=== PATIENT | female | born 1970 | race Caucasian/White ===

== ENCOUNTER 2020-04-17 10:05 | Outpatient (REF) | payer MEDICAID, SELFPAY ==
--- NOTE | 2020-04-17 10:14 | XR_ITS ---
EXAMINATION: XR KNEE, RIGHT CLINICAL INFORMATION: Right knee pain COMPARISON: None TECHNIQUE: Four views of the right knee. FINDINGS: There are is normal bony mineralization. No fracture, dislocation, or destructive process. There is no significant knee joint compartment narrowing and no chondrocalcinosis or erosive change. There is spurring at the quadriceps insertion patella. There may be mild thickening distal quadriceps tendon and trace fluid suprapatellar bursa. Hoffa's fat pad appears normal. Axial view patella shows no lateralization or tilting. XR/XR knee RT 3V IMPRESSION: 1. Spurring quadriceps insertion on patella. 2. Question mild thickening distal quadriceps tendon and trace suprapatellar fluid.
== END 2020-04-17 10:06 | disposition home or self-care (01) ==
LOC: HO.LAB 10:05
PROVIDERS: PCP Student in an Organized Health Care Education/Training Program; Visit Provider Student in an Organized Health Care Education/Training Program
DX: M25.561 Pain in right knee (principal); I10 Essential (primary) hypertension
CPT/HCPCS: 73562

== ENCOUNTER 2020-06-06 13:36 | Outpatient (REF) | payer MEDICAID, SELFPAY ==
--- NOTE | 2020-06-06 | MM_ITS ---
EXAMINATION: MM SCREENING DIGITAL BREAST TOMOSYNTHESIS, BILATERAL CLINICAL INFORMATION: Screening. Asymptomatic. The lifetime risk of breast cancer based on the Tyrer-Cuzick Model is 21%. Additional annual screening with breast MRI may be of benefit in women with a Cary Score of 20% or greater. COMPARISON: Mammography: March 29, 2019 and studies dating back to February 07, 2011 TECHNIQUE: Digital breast tomosynthesis is performed in both the craniocaudal and mediolateral oblique views along with computer-aided detection (CAD). Synthesized 2D images are generated from the tomosynthesis. FINDINGS: There are scattered areas of fibroglandular density (ACR BI-RADS breast composition Category b). There are skin calcifications seen bilaterally as well as stable architectural distortion from previous reduction mammoplasty. No new abnormal dominant mass or more suspicious grouping of microcalcifications identified. MM/MM tomosynthesis screening BI IMPRESSION: There are no significant changes from prior study. ASSESSMENT: BI-RADS 2: Benign RECOMMENDATION: Routine annual mammography screening. This patient's information was entered into a reminder system with a target due date for their next mammogram.
== END 2020-06-06 13:37 | disposition home or self-care (01) ==
LOC: HO.MAMMO 13:36
PROVIDERS: PCP Student in an Organized Health Care Education/Training Program; Visit Provider Student in an Organized Health Care Education/Training Program
DX: Z12.31 Encounter for screening mammogram for malignant neoplasm of breast (principal)
CPT/HCPCS: 77063; 77067

== ENCOUNTER 2021-01-02 08:28 | Outpatient (REF) | payer MEDICAID, SELFPAY ==
--- NOTE | ~2021-01-02 | XR_ITS ---
EXAMINATION: AP VIEWS OF BOTH KNEES WITH WEIGHTBEARING AND A LATERAL AND SUNRISE VIEW OF THE RIGHT KNEE CLINICAL INFORMATION: Pain COMPARISON: 04/17/2020 TECHNIQUE: As above FINDINGS: Moderate effusion. Generalized spurring. Relative preservation of joint space. Minor calcific tendinitis changes lateral femoral metaphysis similar to baseline. XR/XR knee RT 2V IMPRESSION: Increasing now moderate size joint effusion. No new findings otherwise.
--- NOTE | ~2021-01-02 | XR_ITS ---
EXAMINATION: AP VIEWS OF BOTH KNEES WITH WEIGHTBEARING AND A LATERAL AND SUNRISE VIEW OF THE RIGHT KNEE CLINICAL INFORMATION: Pain COMPARISON: 04/17/2020 TECHNIQUE: As above FINDINGS: Moderate effusion. Generalized spurring. Relative preservation of joint space. Minor calcific tendinitis changes lateral femoral metaphysis similar to baseline. XR/XR knee standing BI IMPRESSION: Increasing now moderate size joint effusion. No new findings otherwise.
== END 2021-01-02 08:29 | disposition home or self-care (01) ==
LOC: HO.HOSX 08:28
PROVIDERS: Visit Provider Physician Assistant
DX: M17.11 Unilateral primary osteoarthritis, right knee (principal); M25.562 Pain in left knee
CPT/HCPCS: 73560; 73565; 99202

== ENCOUNTER 2021-06-19 08:54 | Outpatient (REF) | payer MEDICAID, SELFPAY ==
--- NOTE | ~2021-06-19 | MM_ITS ---
EXAMINATION: MM SCREENING DIGITAL BREAST TOMOSYNTHESIS, BILATERAL CLINICAL INFORMATION: Screening. Asymptomatic. Remote reduction mammoplasty, 1999. The lifetime risk of breast cancer based on the Tyrer-Cuzick Model is 22%. COMPARISON: Mammography: 06/06/2020, 03/29/2019, 09/02/2016 TECHNIQUE: Digital breast tomosynthesis is performed in both the craniocaudal and mediolateral oblique views along with computer-aided detection (CAD). Synthesized 2D images are generated from the tomosynthesis. FINDINGS: There are scattered areas of fibroglandular density (ACR BI-RADS breast composition Category b). There is stable minor scarring bilateral breasts along with benign round, rim, predominantly dermal calcifications consistent with the prior reduction mammoplasty. Parenchymal pattern is similar to prior studies. There is no developing density or architectural abnormality. The axilla and skin contours are unremarkable. No significant changes. MM/MM tomosynthesis screening BI IMPRESSION: No mammographic evidence of malignancy. ASSESSMENT: BI-RADS 2: Benign RECOMMENDATION: 1. Routine annual mammography screening. 2. The lifetime risk of breast cancer based on the Tyrer-Cuzick Model is 22%. Additional annual adjunct screening with breast MRI may be of benefit in women with a risk score of 20% or greater. This patient's information was entered into a reminder system with a target due date for their next mammogram.
== END 2021-06-19 08:55 | disposition home or self-care (01) ==
LOC: HO.MAMMO 08:54
PROVIDERS: PCP Student in an Organized Health Care Education/Training Program; Visit Provider Student in an Organized Health Care Education/Training Program
DX: Z12.31 Encounter for screening mammogram for malignant neoplasm of breast (principal)
CPT/HCPCS: 77063; 77067

== ENCOUNTER → 2021-12-18 15:16 | Outpatient (BNVA) | payer MEDICAID, SELFPAY | PROVIDERS: PCP Student in an Organized Health Care Education/Training Program; Visit Provider Physician Assistant | DX: M17.0 Bilateral primary osteoarthritis of knee (principal) | CPT/HCPCS: 20610; 99212; J1040 ==

== ENCOUNTER → 2022-06-16 08:44 | Outpatient (BNVA) | payer MEDICAID, SELFPAY | PROVIDERS: PCP Student in an Organized Health Care Education/Training Program; Visit Provider Physician Assistant | DX: M17.0 Bilateral primary osteoarthritis of knee (principal) | CPT/HCPCS: 20610; 99212; J1040 ==

== ENCOUNTER 2022-12-23 11:51 | Outpatient (REF) | payer MEDICAID, SELFPAY ==
[2022-12-31 04:14] LABS: HPV mRNA E6/E7 rflx Not Detected (Not Detected)
== END 2022-12-23 11:52 | disposition home or self-care (01) ==
LOC: HO.HHCLNP 11:51
PROVIDERS: Visit Provider Advanced Practice Midwife
DX: Z12.4 Encounter for screening for malignant neoplasm of cervix (principal); Z11.51 Encounter for screening for human papillomavirus (HPV)
CPT/HCPCS: 87624; 88142

== ENCOUNTER 2022-12-25 10:30 | Outpatient (REF) | payer MEDICAID, SELFPAY | END 2022-12-25 10:31 | disposition home or self-care (01) | LOC: HO.HHCLNP 10:30 | PROVIDERS: Visit Provider Advanced Practice Midwife | DX: Z13.89 Encounter for screening for other disorder (principal) ==

== ENCOUNTER 2022-12-31 08:43 | Outpatient (REF) | payer MEDICAID, SELFPAY ==
--- NOTE | ~2022-12-31 | MM_ITS ---
EXAMINATION: MM SCREENING DIGITAL BREAST TOMOSYNTHESIS, BILATERAL CLINICAL INFORMATION: Screening. Asymptomatic. Patient has a history of bilateral reduction mammoplasty. COMPARISON: Mammography: This study is compared with prior exams dating back to 2017. TECHNIQUE: Digital breast tomosynthesis is performed in both the craniocaudal and mediolateral oblique views along with computer-aided detection (CAD). Synthesized 2D images are generated from the tomosynthesis. FINDINGS: The breasts are almost entirely fatty (ACR BI-RADS breast composition Category a). There are no significant masses, abnormal calcifications, or other abnormalities. There are post reduction changes in each breast. MM/MM tomosynthesis screening BI IMPRESSION: No mammographic evidence of malignancy. ASSESSMENT: BI-RADS BI-RADS 2 - Benign Findings RECOMMENDATION: Routine annual mammography screening. 1 year F/U This examination should not preclude the clinical evaluation of a suspicious palpable abnormality. This patient's information was entered into a reminder system with a target due date for their next mammogram.
== END 2022-12-31 08:44 | disposition home or self-care (01) ==
LOC: HO.MAMMO 08:43
PROVIDERS: PCP Student in an Organized Health Care Education/Training Program; Visit Provider Student in an Organized Health Care Education/Training Program
DX: Z12.31 Encounter for screening mammogram for malignant neoplasm of breast (principal)
CPT/HCPCS: 77063; 77067

== ENCOUNTER → 2022-12-31 08:45 | Outpatient (BNV) | payer MEDICAID, SELFPAY | PROVIDERS: PCP Student in an Organized Health Care Education/Training Program; Visit Provider Radiology Diagnostic Radiology | DX: Z12.31 Encounter for screening mammogram for malignant neoplasm of breast (principal) | CPT/HCPCS: 77063; 77067 ==

== ENCOUNTER 2023-10-26 08:57 | Outpatient (REF) | payer MEDICAID, SELFPAY ==
[2023-10-26 15:02] LABS: Alanine Aminotransferase 31 U/L (0-31); Albumin Level 4.2 g/dL (3.5-5.0); Alkaline Phosphatase 66 U/L (39-117); Anion Gap 10 (12-20); Aspartate Amino Transferase 22 U/L (5-31); Bilirubin Direct 0.1 mg/dL (0.0-0.5); Bilirubin Total 0.3 mg/dL (0.0-1.0); Blood Urea Nitrogen 12 mg/dL (9-16); Carbon Dioxide 30 mmol/L (22-29); Chloride 103 mmol/L (96-108); Cholesterol 171 mg/dL (<200); Estimated Glomerular Filt Rate > 60; Glucose Random 105 mg/dL (60-115); HDL Cholesterol 61 mg/dL (>40); LDL Cholesterol Calculated 98 mg/dL (<100); Potassium 3.9 mmol/L (3.3-5.1); Sodium 139 mmol/L (135-145); Total Protein 7.5 g/dL (6.5-8.0); Triglycerides 60 mg/dL (<150)
== END 2023-10-26 08:58 | disposition home or self-care (01) ==
LOC: HO.CHCLDS 08:57
PROVIDERS: Visit Provider Student in an Organized Health Care Education/Training Program
DX: I1A.0 Resistant hypertension (principal)
CPT/HCPCS: 36415; 80048; 80061; 80076

== ENCOUNTER 2024-03-24 09:44 | Outpatient (REF) | payer OTHER, SELFPAY ==
--- NOTE | ~2024-03-24 | MM_ITS ---
EXAMINATION: MM SCREENING DIGITAL BREAST TOMOSYNTHESIS, BILATERAL CLINICAL INFORMATION: Screening. Asymptomatic. COMPARISON: Mammography: Comparison is made with available priors TECHNIQUE: Digital breast mammography with tomosynthesis is performed in both the craniocaudal and mediolateral oblique views along with computer-aided detection (CAD). FINDINGS: There are scattered areas of fibroglandular density (ACR BI-RADS breast composition Category b). Bilateral reduction mammoplasty. There are no significant masses, abnormal calcifications, or other abnormalities. MM/MM tomosynthesis screening BI IMPRESSION: No mammographic evidence of malignancy. ASSESSMENT: BI-RADS BI-RADS 2 - Benign Findings RECOMMENDATION: Routine annual mammography screening. 1 year F/U This examination should not preclude the clinical evaluation of a suspicious palpable abnormality. This patient's information was entered into a reminder system with a target due date for their next mammogram. Electronically signed by: Magdalena Mishra DO 04/01/2024 04:07 PM DEREK
== END 2024-03-24 09:45 | disposition home or self-care (01) ==
LOC: HO.MAMMO 09:44
PROVIDERS: Visit Provider Student in an Organized Health Care Education/Training Program
DX: Z12.31 Encounter for screening mammogram for malignant neoplasm of breast (principal)
CPT/HCPCS: 77063; 77067

== ENCOUNTER → 2024-03-24 10:00 | Outpatient (BNV) | payer OTHER, SELFPAY | PROVIDERS: Visit Provider Internal Medicine | DX: Z12.31 Encounter for screening mammogram for malignant neoplasm of breast (principal) | CPT/HCPCS: 77063; 77067 ==

== ENCOUNTER 2025-02-06 09:22 | Outpatient (REF) | payer BC, SELFPAY ==
--- OUTSIDE RECORDS SUMMARY | 2025-02-06 11:04 | XMS_ITS | Encounter Summary ---
Author Organization [employer] Address [address] [place] [address] Care Team Providers Care Motion Picture Photographer Name Role Phone Mone Bazzi MD Primary Care Provider [phone] Reason for Visit * Reason Onset Date Comments Med Refill 01/05/2024 Encounter Details Date Type Department Care Team ([facility] st Contact Info) Description 01/05/2024 Telephone [facility] MEDICINE [address] [place] [address] Mone Bazzi MD [address] [place] [address] Med Refill Social History Tobacco Use Types Packs/Day Years Used Date Smoking Tobacco: Never Passive Smoke Exposure: Never Smokeless Tobacco: Never Alcohol Use Standard Drinks/Week Comments Not Currently 0 (1 standard drink = 0.6 oz pur e alcohol) Depression Answer Date Recorded Patient Health Questionnaire-9 Score 0 11/13/2022 Housing Stability Answer Date Recorded What is your housing situation today? I have jerrell boyer 11/23/[address] you li ve. Do you have problems with any of the following? None of the above 11/23/2023 Food Insecurity Answer Date Recorded Within the past 12 months, y ou worried that your food would run out before you got money to buy more: Never True 11/23/2023 Within the past 12 months,th e food you bought just didn't last and you didn't have enough money to get more: Never True 12/2023 Transportation Answer Date Recorded In the past 12 months, has l ack of transportation kept you from medical appts, meetings, work or from getting things needed for daily living? No 11/23/2023 Utilities Answer Date Recorded In the past 12 months, has t he electric, gas, oil or water company threatened to shut off services in your home? No 11/23/2023 Depression Answer Date Recorded Patient Health Questionnaire-2 Score 0 11/13/2022 Comments No Sex and Gender Information Value Date Recorded Sex Assigned at Female 03/17/2022 10:21 AM EDT Legal Sex Female 10:21 AM EDT Gender Identity Female 03/17/2022 10:21 AM EDT Sexual Orientation Straight 03/17/2022 10 :21 AM EDT documented as of this encounter Miscellaneous Notes * Telephone Encounter - Shane Harding - 01/05/2024 10:34 AM EDT TC from pt requesting medication refill. Medications needing refill : Lorazepam To be sent to: [id number] documented in this encounter Plan of Treatment Upcoming Encounters Date Type Department Care Team (Late st Contact Info) Description 03/21/2025 10:00 AM EST Clinical Support [facility] MED & PEDS [address] [place] [address] Stephanie Mendez, AMANDA [address] [place] [address] documented as of this encounter Visit Diagnoses Not on filedocumented in this encounter Additional Health Concerns Assessment Noted Time PHQ-9 Depression Total Score: 0 11/14/19 23 10:27 AM EDT documented as of this encounter Care Teams Motion Picture Photographer Relationship Specialty Start Date End Date Mone Bazzi MD [address] [place] [address] PCP - General Family Medicine 05/25/13 documented as of this encounter
--- OUTSIDE RECORDS SUMMARY | 2025-02-06 11:04 | XMS_ITS | Encounter Summary ---
Author Organization [employer] Address [address] [place] [address] Care Team Providers Care Glass Production Machine Operator Name Role Phone Mone Bazzi MD Primary Care Provider [phone] Reason for Visit * Reason Onset Date Comments Lab Orders 10/01/2023 Encounter Details Date Type Department Care Team ([facility] st Contact Info) Description 10/01/2023 Telephone [facility] MEDICINE [address] [place] [address] Mone Bazzi MD [address] [place] [address] Lab Orders Social History Tobacco Use Types Packs/Day Years Used Date Smoking Tobacco: Never Smokeless Tobacco: Never Alcohol Use Standard Drinks/Week Comments Not Currently 0 (1 standard drink = 0.6 oz pur e alcohol) Depression Answer Date Recorded Patient Health Questionnaire-9 Score 0 11/13/2022 Housing Stability Answer Date Recorded What is your housing situation today? I have jerrell boyer 03/11/[address] you li ve. Do you have problems with any of the following? None of the above 03/11/2023 Food Insecurity Answer Date Recorded Within the past 12 months, y ou worried that your food would run out before you got money to buy more: Never True 03/11/2023 Within the past 12 months,th e food you bought just didn't last and you didn't have enough money to get more: Never True Transportation Answer Date Recorded In the past 12 months, has l ack of transportation kept you from medical appts, meetings, work or from getting things needed for daily living? No 03/11/2023 Utilities Answer Date Recorded In the past 12 months, has t he electric, gas, oil or water company threatened to shut off services in your home? No 03/11/2023 Depression Answer Date Recorded Patient Health Questionnaire-2 Score 0 11/13/2022 Comments No Sex and Gender Information Value Date Recorded Sex Assigned at Female 03/17/2022 10:21 AM EDT Legal Sex Female 10:21 AM EDT Gender Identity Female 03/17/2022 10:21 AM EDT Sexual Orientation Straight 03/17/2022 10 :21 AM EDT documented as of this encounter Miscellaneous Notes * Telephone Encounter - Yin Pickens RN - 10/02/2023 2:10 PM EDT Noted. Thank you * Telephone Encounter - Mone Bazzi MD - 10/02/2023 12:22 PM EDT Labs will be ordered at the visit * Telephone Encounter - Yin Pickens RN - 10/01/2023 2:40 PM EDT Please review and advise if A1C can be ordered or any other labs. Pt is on recall for October. * Telephone Encounter - Jerry Glover - 10/01/2023 2:27 PM EDT Tc from patient calling to request lab orders for A1c just to make sure everything is fine no concerns at the moment documented in this encounter Plan of Treatment Upcoming Encounters Date Type Department Care Team (Late st Contact Info) Description 03/21/2025 10:00 AM EST Clinical Support [facility] MED & PEDS [address] [place] [address] Stephanie Mendez, RN [address] [place] [address] documented as of this encounter Visit Diagnoses Not on filedocumented in this encounter Additional Health Concerns Assessment Noted Time PHQ-9 Depression Total Score: 0 11/14/19 23 10:27 AM EDT documented as of this encounter Care Teams Glass Production Machine Operator Relationship Specialty Start Date End Date Mone Bazzi MD [address] [place] [id number] PCP - General Family Medicine 05/25/13 documented as of this encounter
--- OUTSIDE RECORDS SUMMARY | 2025-02-06 11:04 | XMS_ITS | Encounter Summary ---
Author Organization [employer] Address [address] [place] [address] Care Team Providers Care Associate Professor Of Sociology Name Role Phone Mone Bazzi MD Primary Care Provider [phone] Reason for Visit * Reason Onset Date Comments Med Refill 01/05/2024 Encounter Details Date Type Department Care Team ([facility] st Contact Info) Description 01/05/2024 Telephone [facility] MEDICINE [address] [place] [address] Mone Bazzi MD [address] [place] [address] Med Refill Social History Tobacco Use Types [...] Telephone Encounter - Shane Harding - 01/05/2024 10:32 AM EDT TC from pt requesting medication refill. Medications needing refill : Concerta To be sent to: [facility] #[id number] documented in this encounter Plan of Treatment Upcoming Encounters Date Type Department Care Team (Late st Contact Info) Description 03/21/2025 10:00 AM EST Clinical Support [facility] CH[facility] MED & PEDS [address] [place] [address] Stephanie Mendez, AMANDA [address] [place] [address] documented as of this encounter Visit Diagnoses Not on filedocumented in this encounter Additional Health Concerns Assessment Noted Time PHQ-9 Depression Total Score: 0 11/14/19 23 10:27 AM EDT documented as of this encounter Care Teams Associate Professor Of Sociology Relationship Specialty Start Date End Date Mone Bazzi MD [address] [place] [address] PCP - General Family Medicine 05/25/13 documented as of this encounter
--- OUTSIDE RECORDS SUMMARY | 2025-02-06 11:04 | XMS_ITS | Encounter Summary ---
Author Organization [employer] Address [address] [place] [address] Care Team Providers Care Eeler Name Role Phone Mone Bazzi MD Primary Care Provider [phone] Reason for Visit * Reason Comments Med Refill Encounter Details Date Type Department Care Team ([facility] st Contact Info) Description 01/18/2025 Refill [facility] MEDICINE [address] [place] [address] Moen Bazzi MD [address] [place] [address] Social History Tobacco Use Types Packs/Day Years Used Date Smoking Tobacco: Never Passive Smoke Exposure: Never Smokeless Tobacco: Never Alcohol Use Standard Drinks/Week Comments Not Currently 0 (1 standard drink = 0.6 oz pur e alcohol) Depression Answer Date Recorded Patient Health Questionnaire-9 Score 0 08/09/2024 Patient Health Questionnaire-9 Score 0 08/09/2024 Last PHQ-9: Questionnaire Data Not on file 0 08/09/2024 Housing Stability Answer Date Recorded What is [...] Date Recorded Patient Health Questionnaire-2 Score 0 08/09/2024 Internet Access Answer Date Recorded Internet Access Q1 Yes 01/16/2024 Internet Access Q2 Not on file 01/16/2024 Comments No Sex and Gender Information Value Date Recorded Sex Assigned at Female 03/17/2022 10:21 AM EDT Legal Sex Female 10:21 AM EDT Gender Identity Female 03/17/2022 10:21 AM EDT Sexual Orientation Straight 03/17/2022 10 :21 AM EDT documented as of this encounter Plan of Treatment Upcoming Encounters Date Type Department Care Team ([facility] st Contact Info) Description 03/21/2025 10:00 AM EST Clinical Support [facility] MED & PEDS [address] [place] [address] Stephanie Mendez, AMANDA [address] [place] [address] documented as of this encounter Visit Diagnoses Not on filedocumented in this encounter Additional Health Concerns Assessment Noted Time PHQ-9 Depression Total Score: 0 08/10/19 25 8:49 AM EDT documented as of this encounter Care Teams Eeler Relationship Specialty Start Date End Date Mone Bazzi MD [address] [place] [address] PCP - General Family Medicine 05/25/13 documented as of this encounter
--- OUTSIDE RECORDS SUMMARY | 2025-02-06 11:04 | XMS_ITS | Encounter Summary ---
Author Organization [employer] Address [address] [place] [address] Care Team Providers Care Supervisor [employer] Name Role Phone Mone Bazzi MD Primary Care Provider [phone] Reason for Visit * Reason Onset Date Comments Med Refill 07/20/2023 Encounter Details Date Type Department Care Team ([facility] st Contact Info) Description 07/20/2023 Telephone [facility] MEDICINE [address] [place] [address] Mone Bazzi MD [address] [place] [address] Med Refill Social History Tobacco Use Types [...] encounter Miscellaneous Notes * Telephone Encounter - Onesimo Lott - 07/20/2023 9:53 AM EST TC from pt requesting medication refill. Medications needing refill: LORazepam (Ativan) 1 MG tablet To be sent to: [facility] #[id number] documented in this encounter Plan of Treatment Upcoming Encounters Date Type Department Care Team (Late st Contact Info) Description 03/21/2025 10:00 AM EST Clinical Support [facility] MED & PEDS [address] [place] [address] Stephanie Mendez, AMANDA [address] [place] [address] documented as of this encounter Visit Diagnoses Not on filedocumented in this encounter Additional Health Concerns Assessment Noted Time PHQ-9 Depression Total Score: 0 11/14/19 23 10:27 AM EDT documented as of this encounter Care Teams Supervisor [employer] Relationship Specialty Start Date End Date Mone Bazzi MD [address] [place] [address] PCP - General Family Medicine 05/25/13 documented as of this encounter
--- OUTSIDE RECORDS SUMMARY | 2025-02-06 11:04 | XMS_ITS | Encounter Summary ---
Author Organization [employer] Address [address] [place] [address] [address] [place] [address] Care Team Providers Care Bottom Sander Name Role Phone Mone Bazzi MD Primary Care Provider [phone] Encounter Details Date Type Department Care Team (Latest Contact Info) Description 05/21/2021 Abstract [facility] CONVERSIONS Dental, Provider, DDS Social History Tobacco Use Types Packs/Day Years Used Date Smoking Tobacco: Never Assessed Comments Unknown Sex and Gender Information Value Date Recorded Sex Assigned at Female 03/17/2022 10:21 AM EDT Legal Sex Female 10:21 AM EDT Gender Identity Female 03/17/2022 10:21 AM EDT Sexual Orientation Straight 03/17/2022 10 :21 AM EDT documented as of this encounter Plan of Treatment Upcoming Encounters Date Type Department Care Team (Late st Contact Info) Description 03/21/2025 10:00 AM EST Clinical Support [facility] MED & PEDS [address] [place] [address] Stephanie Mendez, AMANDA [address] [place] [address] documented as of this encounter Visit Diagnoses Not on filedocumented in this encounter Care Teams Bottom Sander Relationship Specialty Start Date End Date Mone Bazzi MD [address] [place] [address] PCP - General Family Medicine 05/25/13 documented as of this encounter
--- OUTSIDE RECORDS SUMMARY | 2025-02-06 11:04 | XMS_ITS | Encounter Summary ---
Author Organization [employer] Address [address] 7t [place] [address] Care Team Providers Care Production Clerk Name Role Phone Mone Bazzi MD Primary Care Provider [phone] Reason for Visit * Reason Onset Date Comments Med Refill 01/18/2025 Encounter Details Date Type Department Care Team ([facility] st Contact Info) Description 01/18/2025 Telephone [facility] MED & PEDS [address] [place] [address] Mone Bazzi MD [address] [place] [address] Med Refill Social History Tobacco Use Types [...] encounter Miscellaneous Notes * Telephone Encounter - Pratima Pike LPN - 01/18/2025 12:23 PM EDT Script was sent to [facility] #[id number] on 12/01/24 with 2 refills. * Telephone Encounter - Frandy Lamas - 01/18/2025 11:58 AM EDT TC from pt requesting medication refill. Medications needing refill : cloNIDine (Catapres) 0.1 MG tablet To be sent to: [facility] #[id number] - [place], [place] - [address] [place] [address] AT [facility] [address] documented in this encounter Plan of Treatment Upcoming Encounters Date Type Department Care Team (Late st Contact Info) Description 03/21/2025 10:00 AM EST Clinical Support [facility] MED [facility] PEDS [address] [place] [address] Stephanie Mendez, RN [address] [place] [address] documented as of this encounter Visit Diagnoses Not on filedocumented in this encounter Additional Health Concerns Assessment Noted Time PHQ-9 Depression Total Score: 0 08/10/19 25 8:49 AM EDT documented as of this encounter Care Teams Production Clerk Relationship Specialty Start Date End Date Mone Bazzi MD [address] [place] [address] PCP - General Family Medicine 05/25/13 documented as of this encounter
--- OUTSIDE RECORDS SUMMARY | 2025-02-06 11:04 | XMS_ITS | Encounter Summary ---
Author Organization [employer] Address [address] [place] [address] Care Team Providers Care It Support Specialist Name Role Phone Mone Bazzi MD Primary Care Provider [phone] Reason for Visit * Reason Comments Med Refill Encounter Details Date Type Department Care Team ([facility] st Contact Info) Description 07/17/2023 Refill [facility] MEDICINE [address] [place] [address] Conrad Zapata MD [address] [place] [address] Anxiety Social History Tobacco Use Types Packs/Day Years [...] Description 03/21/2025 10:00 AM EST Clinical Support [facility] MED & PEDS [address] [place] [address] Stephanie Mendez, AMANDA [address] [place] [address] documented as of this encounter Visit Diagnoses Diagnosis Anxiety Anxiety state, unspecified documented in this encounter Additional Health Concerns Assessment Noted Time PHQ-9 Depression Total Score: 0 11/14/19 23 10:27 AM EDT documented as of this encounter Care Teams It Support Specialist Relationship Specialty Start Date End Date Mone Bazzi MD [address] [place] [address] PCP - General Family Medicine 05/25/13 documented as of this encounter
--- OUTSIDE RECORDS SUMMARY | 2025-02-06 11:04 | XMS_ITS | Encounter Summary ---
Author Organization [employer] Address [address] [place] [address] Care Team Providers Care Energy Efficiency Specialist Name Role Phone Mone Bazzi MD Primary Care Provider [phone] Encounter Details Date Type Department Care Team (Late st Contact Info) Description 02/03/2024 Orders Only [facility] [address] [place] [address] Provider, MD Hollie Social History Tobacco Use Types Packs/Day Years [...] Recorded Patient Health Questionnaire-2 Score 0 11/13/2022 Internet Access Answer Date Recorded Internet Access [...] Description 03/21/2025 10:00 AM EST Clinical Support [facility]S [address] [place] [address] Stephanie Mendez, AMANDA [address] [place] [address] documented as of this encounter Procedures Procedure Name Priority Date/Time Associated Diagnosis Comments CT ABDOMEN PELVIS W CONTRAST Routine 02/03/2024 10:30 AM EDT documented in this encounter Results * CT Abdomen Pelvis w/ Contrast (02/03/2024 10:30 AM EDT) Anatomical Region Laterality Modality Body, Pelvis, Abdomen Computed T omography us Historical Provider MD MOMIN CT PROCEDURES Final R esult documented in this encounter Visit Diagnoses Not on filedocumented in this encounter Additional Health Concerns Assessment Noted Time PHQ-9 Depression Total Score: 0 11/14/19 23 10:27 AM EDT documented as of this encounter Care Teams Energy Efficiency Specialist Relationship Specialty Start Date End Date Mone Bazzi MD [address] [place] [id number] PCP - General Family Medicine 05/25/13 documented as of this encounter
--- OUTSIDE RECORDS SUMMARY | 2025-02-06 11:04 | XMS_ITS | Clinical Summary ---
Author Organization [employer] [facility] it Address [address] [place] [address] Care Team Providers Care Building Supplies Salesperson Retail Name Role Phone Kiera Mancera MD Primary Care Provider [phone] Surgical History Surgery Date Site/Laterality Comments BREAST REDUCTION 2000 PROCEDURE: OK BREAST REDUCTION; COMMENT: Dr. Deepak Ann Medical History Medical History Date Comments Carpal tunnel syndrome 05/15/2005 DX:Carpal tunnel syndrome; COMMENT: Right wrist 04/21. Keloid scar DX:Keloid scar; COMMENT: left pinna Family History Medical History Relation Name Comments Breast cancer Mother's side 1 first cousi n Relation Name Status Comments Brother Alive x2 from dad, 1 from mom, all healthy Father Alive HTN Mother Alive HTN, Diabetes Mother's side 1 Mother's side 2 Social History Tobacco Use Types Packs/Day Years Used Date Smoking Tobacco: Former Cigarettes Q uit: 08/16/2004 Smokeless Tobacco: Never Alcohol Use Standard Drinks/Week Comments No 0 (1 standard drink = 0.6 oz pur e alcohol) Comments Unknown Sex and Gender Information Value Date Recorded Sex Assigned at Not on file Legal Sex Female 2:24 AM EST Gender Identity Not on file Sexual Orientation Not on file Obstetrics History Plan of Treatment Health Maintenance Due Date Last Done Comments Breast Cancer Screening 1970 DTaP,Tdap,and Td Vaccines (1 - Tdap) 1989 Cervical Cancer Screening: P ap Smear 1991 Hepatitis B Vaccines (3 of 3 - 19+ 3-dose series) 09/23/2004 04/26/2004, 03/26/2004 Pneumococcal Vaccine: 50+ Years (1 of 1 - PCV) 2020 Zoster Vaccines (1 of 2) 2020 Cholesterol Screening (Lipid Panel) 06/16/2023 Colorectal Cancer Screening: Colonoscopy 06/16/2023 HIV Screening 06/16/2023 Hepatitis C Screening 06/16/2023 Hypertension/CHF/CAD Annual BMP Blood Test 06/16/2023 Social Influencers of Health Screening 06/16/2023 Depression Screening 05/18/2024 COVID-19 Vaccine (1 - 2023-2 5 season) 2025 Influenza Vaccine (#1) 2025 0, 02/09/2009 MMR Vaccines Aged Out 05/17/2004 No longer eligi ble based on patient's age to complete this topic HIB Vaccines Aged Out No longer eligi ble based on patient's age to complete this topic HPV Vaccines Aged Out No longer eligi ble based on patient's age to complete this topic Hepatitis A Vaccines Aged Out No long er eligible based on patient's age to complete this topic IPV Vaccines Aged Out No longer eligi ble based on patient's age to complete this topic Meningococcal ACWY Vaccine Aged Out N o longer eligible based on patient's age to complete this topic Meningococcal B Vaccine Aged Out No l onger eligible based on patient's age to complete this topic RSV Immunization Patients Under 20 months Aged Out No longer eligible b ased on patient's age to complete this topic Varicella Vaccines Aged Out No longer eligible based on patient's age to complete this topic Care Teams Building Supplies Salesperson Retail Relationship Specialty Start Date End Date Kiera Mancera MD [address] [place] [id number] PCP - General 08/19/11
--- OUTSIDE RECORDS SUMMARY | 2025-02-06 11:04 | XMS_ITS | Encounter Summary ---
Author Organization [employer] Address [address] [place] [address] Care Team Providers Care Senior Estimator Name Role Phone Mone Bazzi MD Primary Care Provider [phone] Reason for Visit * Reason Onset Date Comments Med Refill 07/20/2023 Encounter Details Date Type Department Care Team ([facility] st Contact Info) Description 07/20/2023 Telephone [facility] [address] [place] [address] Mone Bazzi MD [address] [place] [address] Med Refill Social History Tobacco Use Types [...] encounter Miscellaneous Notes * Telephone Encounter - Mone Bazzi MD - 07/21/2023 11:21 AM EST Med sent * Telephone Encounter - Catrachita Murphy - 07/21/2023 10:00 AM EST Tc from pt calling in regards to refill. States medication is supposed to be Methylphenidate HCl (methylphenidate ER) 27 MG 24 hr table * Telephone Encounter - Onesimo Lott - 07/20/2023 9:54 AM EST TC from pt requesting medication refill. Medications needing refill: Concerta 18 MG CR tablet To be sent to: [id number] documented in this encounter Plan of Treatment Upcoming Encounters Date Type Department Care Team (Late st Contact Info) Description 03/21/2025 10:00 AM EST Clinical Support [facility] MED [facility] PEDS [address] [facility] [place] [address] Stephanie Mendez RN [address] [facility] [place] [address] documented as of this encounter Visit Diagnoses Not on filedocumented in this encounter Additional Health Concerns Assessment Noted Time PHQ-9 Depression Total Score: 0 11/14/19 10:27 AM EDT documented as of this encounter Care Teams Senior Estimator Relationship Specialty Start Date End Date Mone Bazzi MD [address] [place] [id number] PCP - General Family Medicine 05/25/13 documented as of this encounter
--- OUTSIDE RECORDS SUMMARY | 2025-02-06 11:04 | XMS_ITS | Encounter Summary ---
Author Organization [employer] Address [address] [facility] 7[address] [place] [address] Care Team Providers Care Automobile Taillight Assembler Name Role Phone Mone Bazzi MD Primary Care Provider [phone] Reason for Visit * Reason Onset Date Comments Appointment Request 08/14/2022 Encounter Details Date Type Department Care Team (Late Contact Info) Description 08/14/2022 Telephone [facility] MEDICINE [address] [place], [place] [phone] Mone Bazzi MD [address] [place], [place] [phone] Appointment Request Social History Tobacco Use Types Packs/Day Years Used Date Smoking Tobacco: Never Assessed Comments Unknown Sex and Gender Information Value Date Recorded Sex Assigned at Female 03/17/2022 10:21 AM EDT Legal Sex Female 10:21 AM EDT Gender Identity Female 03/17/2022 10:21 AM EDT Sexual Orientation Straight 03/17/2022 10 :21 AM EDT documented as of this encounter Miscellaneous Notes * Telephone Encounter - [place] - 08/14/2022 4:08 PM EDT Tc from pt requesting to r/s appt on 08/12/22 ( [employer] [place] ) Please contact pt at [phone] documented in this encounter Plan of Treatment Upcoming Encounters Date Type Department Care Team ([facility] Contact Info) Description 03/21/2025 10:00 AM EST Clinical Support [facility] MED & PEDS [address] [place] [address] Stephanie Mendez, AMANDA [address] [place] [address] documented as of this encounter Visit Diagnoses Not on filedocumented in this encounter Care Teams Automobile Taillight Assembler Relationship Specialty Start Date End Date Mone Bazzi MD [address] [place] [id number] PCP - General Family Medicine 05/25/13 documented as of this encounter
--- OUTSIDE RECORDS SUMMARY | 2025-02-06 11:04 | XMS_ITS | Encounter Summary ---
Author Organization [employer] Address [address] [facility] 7[address] [place] [address] Care Team Providers Care Wooden Box Maker Name Role Phone Mone Bazzi MD Primary Care Provider [phone] Encounter Details Date Type Department Care Team (Late st Contact Info) Description 09/28/2023 Orders Only [facility] [address] [place] [address] Provider, MD Hollie Social History Tobacco Use [...] Description 03/21/2025 10:00 AM EST Clinical Support [facility] MED & PEDS [address] [place] [address] Stephanie Mendez, RN [address] [place] [address] documented as of this encounter Procedures Procedure Name Priority Date/Time Associated Diagnosis Comments XR CHEST 2 VIEWS Routine 09/28/2023 1:29 PM EDT documented in this encounter Results * XR Chest 2 Views (09/28/2023 1:29 PM EDT) Anatomical Region Laterality Modality Chest Radiographic Claudia ging us Historical Provider MD MOMIN XR PROCEDURES Final R esult documented in this encounter Visit Diagnoses Not on filedocumented in this encounter Additional Health Concerns Assessment Noted Time PHQ-9 Depression Total Score: 0 11/14/19 23 10:27 AM EDT documented as of this encounter Care Teams Wooden Box Maker Relationship Specialty Start Date End Date Mone Bazzi MD [address] [place] [id number] PCP - General Family Medicine 05/25/13 documented as of this encounter
--- OUTSIDE RECORDS SUMMARY | 2025-02-06 11:04 | XMS_ITS | Encounter Summary ---
Author Organization [employer] Address [address] [facility] 7 [place] [address] Care Team Providers Care Building Inspection Engineer Name Role Phone Mone Bazzi MD Primary Care Provider [phone] Reason for Visit * Reason Comments Med Refill Encounter Details Date Type Department Care Team ([facility] st Contact Info) Description 04/08/2023 Refill [facility] MED & PEDS [address] [place], [place] [phone] Johny Vega MD [address] [place] [address] Social History Tobacco Use Types Packs/Day Years [...] 03/21/2025 10:00 AM EST Clinical Support [facility] MED & PEDS [address] [place] [address] Stephanie Mendez, RN [address] [place] [address] documented as of this encounter Visit Diagnoses Not on filedocumented in this encounter Additional Health Concerns Assessment Noted Time PHQ-9 Depression Total Score: 0 11/14/19 23 10:27 AM EDT documented as of this encounter Care Teams Building Inspection Engineer Relationship Specialty Start Date End Date Mone Bazzi MD [address] [place] [id number] PCP - General Family Medicine 05/25/13 documented as of this encounter
--- OUTSIDE RECORDS SUMMARY | 2025-02-06 11:04 | XMS_ITS | Clinical Summary ---
Author Organization [email or web address] Address [address] [facility] [address] [place] [address] Care Team Providers Care Research Study Assistant Name Role Phone Mone Bazzi MD Primary Care Provider [phone] Allergies Active Allergy Reactions Criticality Noted Date Comments Iodinated Contrast Media 09/24/2015 Medications * This document contains information received from the source organization and may not represent a complete record from that organization. Aspirin Low Dose 81 MG EC tablet TAKE 1 TABLET BY MOUTH DAILY 30 tablet 11 10/25/19 25 Active Methylphenidat e HCl (methylphenida te ER) 27 MG 24 hr tablet Take 1 tablet (27 mg) by mouth Once per day. Do not crush, chew, or split. 28 tablet 12/24/19 25 Active LORazepam (Ativan) 1 MG tabletIndicati ons:Anxiety TAKE 1/2 TABLET BY MOUTH EVERY MORNING AND EVERY NIGHT AT BEDTIME FOR ANXIETY 30 tablet 01/07/20 25 Active sertraline (Zoloft) 50 MG tablet Take 1 tablet (50 mg) by mouth Once per day. 90 tablet 3 01/24/20 25 026 Active NIFEdipine (Procardia) 20 MG capsule Take 1 capsule (20 mg) by mouth 3 times daily. 90 capsule 3 01/24/20 25 Active hydroCHLOROthi azide (HYDRODiuril) 25 MG tablet Take 1 tablet (25 mg) by mouth Once per day. 90 tablet 3 01/24/20 25 Active lisinopril 40 MG tabletIndicati ons:HTN (hypertension) , benign Take 1 tablet (40 mg) by mouth Once per day. 90 tablet 2 01/24/20 25 Active cloNIDine (Catapres) 0.1 MG tablet Take 1 tablet (0.1 mg) by mouth every 6 (six) hours during the day. 90 tablet 2 01/24/20 25 Active hydroCHLOROthi azide (HYDRODiuril) 25 MG tablet Take 1 tablet (25 mg) by mouth Once per day. 90 tablet 3 11/30/19 24 025 Discontinued NIFEdipine (Procardia) 20 MG capsule Take 1 capsule (20 mg) by mouth 3 times daily. 90 capsule 11 11/30/19 24 025 Discontinued sertraline (Zoloft) 100 MG tablet TAKE 1 TABLET(100 MG) BY MOUTH IN THE MORNING 30 tablet 2 03/09/20 24 025 Discontinued(Re order (will not trigger notification to Pharmacy)) lisinopril 40 MG tabletIndicati ons:HTN (hypertension) , benign TAKE 1 TABLET(40 MG) BY MOUTH IN THE MORNING 90 tablet 2 07/12/19 25 025 Discontinued(Re order (will not trigger notification to Pharmacy)) cloNIDine (Catapres) 0.1 MG tablet TAKE 1 TABLET BY MOUTH THREE TIMES DAILY 90 tablet 2 12/02/19 25 025 Discontinued(Re order (will not trigger notification to Pharmacy)) hydroCHLOROthi azide (HYDRODiuril) 25 MG tablet TAKE 1 TABLET(25 MG) BY MOUTH DAILY 90 tablet 3 01/10/20 25 025 Discontinued(Re order (will not trigger notification to Pharmacy)) NIFEdipine (Procardia) 20 MG capsule TAKE 1 CAPSULE(20 MG) BY MOUTH THREE TIMES DAILY 90 capsule 11 01/12/20 025 Discontinued(Re order (will not trigger notification to Pharmacy)) lisinopril 40 MG tabletIndicati ons:HTN (hypertension) , benign Take 1 tablet (40 mg) by mouth Once per day. 90 tablet 2 01/24/20 25 025 Discontinued(Re order (will not trigger notification to Pharmacy)) cloNIDine (Catapres) 0.1 MG tablet Take 1 tablet (0.1 mg) by mouth every 6 (six) hours during the day. 90 tablet 2 01/24/20 25 025 Discontinued(Re order (will not trigger notification to Pharmacy)) Active Problems Problem Noted Date Diagnosed Date Long-term current use of opiate analgesic 2024 Resistant hypertension 11/30/2023 Anxiety 03/24/2023 Shoulder pain 10/15/2017 03/24/2023 Depressive disorder 09/05/2014 Attention deficit hyperactivity disorder 015 Benign hypertension 06/23/2012 Encounters Date Type Department Care Team Description 01/23/2025 8:45 AM EDT Office Visit [facility] MED & PEDS [address] [place] [address] Mone Bazzi MD Attention deficit hyperactivity disorder (ADHD), unspecified ADHD type (Primary Dx); HTN (hypertension), benign; Depressive disorder 01/23/2025 Travel 01/20/2025 Telephone [facility] MED [facility] PEDS [address] [place] [address] Mone Bazzi MD chart prep 01/18/2025 Telephone [facility] MED & PEDS [address] [place] [address] Mone Bazzi MD Med Refill 01/18/2025 Refill [facility] MEDICINE [address] [place] [address] Mone Bazzi MD 01/13/2025 Patient Outreach [facility] MEDICINE [address] [place] [address] Mone Bazzi MD Pre-visit Planning ([facility] screening completed on 08/09/24) 01/10/2025 Refill [facility] MED & PEDS [address] [place] [address] Mone Bazzi MD 01/07/2025 Refill [facility] MED [facility] PEDS [address] [place] [address] Mone Bazzi MD 01/06/2025 Refill [facility] PEDS [address] [place] [address] Beth Maciel MD Anxiety 12/23/2024 Refill [facility]EDS [address] [place] [address] Mone Bazzi MD 11/30/2024 Refill [facility] MEDICINE [address] [place] [address] Mone Bazzi MD 11/17/2024 9:30 AM EDT Clinical Support [facility] [address] [place] [address] Stephanie Mendez RN Anxiety 11/17/2024 Refill [facility] MED & PEDS [address] [place] [address] Stephanie Mendez RN Anxiety 11/17/2024 Travel from Last 3 Months Immunizations Immunization Administration Dates Next Due Hep B, adult 04/26/2004,03/26/2004 Influenza, IIV3, injectable 01/28/2010, 9 Influenza, Split (incl. purified surface antigen ) 06/02/2012 MMR 05/17/2004 Moderna Covid-19 Vaccine + 04/18/2021 Td (adult), unspecified 02/28/2003 Tdap 10/15/2017 Family History Medical History Relation Name Comments Breast cancer Maternal Cousin Ovarian cancer Paternal Grandmother Relation Name Status Comments Maternal Cousin Other Paternal Grandmother Social History Tobacco Use Types Packs/Day Years Used Date Smoking Tobacco: Never Passive Smoke Exposure: Never Smokeless Tobacco: Never Tobacco Cessation:Counseling Given: Not Answered Alcohol Use Standard Drinks/Week Comments Not Currently [...] Orientation Straight 03/17/2022 10 :21 AM EDT Last Filed Vital Signs Vital Sign Reading Time Taken Comments Blood Pressure 159/100 01/23/2025 8:57 AM EDT Pulse 100 01/23/2025 8:57 AM EDT Temperature 36.5 C (97.7 F) 01/23/2025 8:57 AM EDT Respiratory Rate 18 01/23/2025 8:57 AM EDT Oxygen Saturation 98% 01/23/2025 8:57 AM EDT Inhaled Oxygen Concentration - - Weight 87.1 kg (192 lb) 01/23/2025 8:57 AM EDT Height 165.7 cm (5' 5.25 ) 01/23/2025 8:57 AM ED T Body Mass Index 31.71 01/23/2025 8:57 AM EDT Plan of Treatment Upcoming Encounters Date Type Department Care Team ([facility] st Contact Info) Description 03/21/2025 10:00 AM EST Clinical Support [facility]S [address] [place] [address] Stephanie Mendez, RN [address] [place] [address] Health Maintenance Due Date Last Done Comments CT Colonography 1970 Colonoscopy 1970 FIT 1970 Sigmoidoscopy 1970 Hepatitis B Vaccines (3 of 3 - 19+ 3-dose series) 09/23/2004 04/26/2004, 03/26/2004 Pneumococcal Vaccine: 50+ Years (1 of 1 - PCV) 2020 Zoster Vaccines (1 of 2) 2020 COVID-19 Vaccine (4 - season) 2025 04/18/2021, 08/13/2020, 07/18/2020 Influenza Vaccine (#1) 2025 3, 01/28/2010, 02/09/2009 Tobacco Screening 05/04/2025 05/04/2024 Alcohol/Substance Use Screening 08/09/2025 08/09/2024 Depression Screening 08/09/2025 08/09/2024, 08/10/19 SDOH Screening 08/09/2025 08/09/2024 FOBT 08/30/2025 08/30/2024 Disability Screening 01/23/2026 01/23/2025 Mammogram 03/24/2026 03/24/2024, 12/16, 06/19/2021, Additional history exists Colorectal Cancer Screening 08/31/2027 FIT DNA/Cologuard 08/31/2027 08/30/2024 DTaP/Tdap/Td Vaccines (2 - Td or Tdap) 10/16/2027 10/15/2017, 02/28/2003 Lipid Panel 10/25/2028 10/26/2023, 11/13/2022 RSV Patients and Patients Aged 60 years or older (1 - 1-dose 75+ series) 2045 HIV Screening Completed 11/13/2022 Hepatitis C Screening Completed 11/13/2022 Cervical Cancer Screening Discontinued HPV/Cotest Discontinued 12/23/2022 Pap Smear Discontinued 12/23/2022 HIB Vaccines Aged Out No longer eligi [...] patient's age to complete this topic Meningococcal Vaccine Aged Out No hussain man eligible based on patient's age to complete this topic RSV under 20 months Aged Out No longe r eligible based on patient's age to complete this topic Rotavirus Vaccines Aged Out No longer eligible based on patient's age to complete this topic Procedures Procedure Name Priority Date/Time Associated Diagnosis Comments POCT DEBRA-14 URINE DRUG SCREEN Routine 11/17/2024 9:58 AM EDT Anxiety LAB COLOGUARD COLON CANCER SCREEN Routine 08/30/2024 4:28 PM EDT Screening for colon cancer BI MAMMOGRAM SCREENING TOMOSYNTHESIS BILATERAL Routine 03/24/2024 9:50 AM EST LIPID PANEL, STANDARD Routine 10/26/2023 8:59 AM EDT Resistant hypertension HPV MRNA E6/E7 REFLEX TO HPV 16, 18/45 Routine 12/23/2022 2:26 PM EDT Attention deficit hyperactivity disorder (ADHD), other type PAP SMEAR Routine 12/23/2022 2:26 PM EDT Attention deficit hyperactivity disorder (ADHD), other type HEPATITIS C AB W/REFL TO HCV RNA, QN, PCR Routine 11/13/2022 10:45 AM EDT PE (physical exam), annual HIV 1 RNA, QN PCR W/RFL JEWEL (RTI,PI,INTEGRASE) Routine 11/13/2022 10:45 AM EDT PE (physical exam), annual from Last 3 Months or Most Recently Relevant to Health Maintenance Results * (ABNORMAL) POCT DEBRA-14 Urine Drug Screen (11/17/2024 9:58 AM EDT) THC Negative Negative Cocaine Screen, Urine Negative Negative Opiate Screen, Urine Negative Negative Methamphetamine Screen Urine Negative Negative Amphetamine Screen, Urine Negative Negative Benzodiazepines Screen, Urine Positive(A) Negative Barbiturate Screen, Urine Negative Negative Methadone Screen, Urine Negative Negative Buprenophine Screen, Urine Negative Negative TCA, Urine Negative Negative MDMA Urine Negative Negative ng/mL Oxycodone Screen, Urine Negative Negative Phencyclidine (PCP), Urine Negative Negative Propoxyphene, Urine Negative Negative Fentanyl, Urine Negative Negative Urine Urine specimen obtained by clean catch procedure / Unknown 11/17/2024 9:58 AM EDT Narrative Stephanie Mendez, RN - 11/17/2024 9:58 AM EDT Internal Pass Control Lot# [id number] Exp: 03-17-26 Mone Bazzi MD POINT OF CARE TEST ENTER/EDIT OR DERABLES Final Result * Cologuard?? colon cancer screening (08/30/2024 4:28 PM EDT) Cologuard Result Negative Negative 09/08/19 4:52 AM EDT [facility] (CLIA #:[id number]) Comment: The Cologuard (TM) test was performed on this specimen. NEGATIVE TEST RESULT. A negative Cologuard result indicates a low likelihood that a colorectal cancer (CRC) or advanced adenoma (adenomatous polyps with more advanced pre-malignant features) is present. The chance that a person with a negative Cologuard test has a colorectal cancer is less than 1 in 1500 (negative predictive value >99.9%) or has an advanced adenoma is less than 5.3% (negative predictive value 94.7%). These data are based on a prospective cross-sectional study of 10,000 individuals at average risk for colorectal cancer who were screened with both Cologuard and colonoscopy. (Alfonso Nicholas et al, N Engl J Med 2014;370(14):1286- 1297) The normal value (reference range) for this assay is negative. COLOGUARD RE-SCREENING RECOMMENDATION: Periodic colorectal cancer screening is an important part of preventive healthcare for asymptomatic individuals at average risk for colorectal cancer. Following a negative Cologuard result, the [place] [employer] and U.S. Multi-Society Task Force screening guidelines recommend a Cologuard re-screening interval of 3 years. References: [place] [employer] Guideline for Colorectal Cancer Screening: https://www.cancer.org/cancer/bqwad-zewnxh-wcbwta/difkrxneb-rygcszpvd-ynkylaj/ac s-rec ommendations.html.; Stanford HOUSER, Melissa DOE, Dominga SARMIENTO, Colorectal Cancer Screening: Recommendations for Physicians and Patients from the U.S. Multi-Society Task Force on Colorectal Cancer Screening , Am J Gastroenterology 2017; 112:0554-6153. TEST DESCRIPTION: Composite algorithmic analysis of stool DNA-biomarkers with hemoglobin immunoassay. Quantitative values of individual biomarkers are not reportable and are not associated with individual biomarker result reference ranges. Cologuard is intended for colorectal cancer screening of adults of either sex, 45 years or older, who are at average-risk for colorectal cancer (CRC). Cologuard has been approved for use by the U.S. FDA. The performance of Cologuard was established in a cross sectional study of average-risk adults aged 50-84. Cologuard performance in patients ages 45 to 49 years was estimated by sub-group analysis of near-age groups. Colonoscopies performed for a positive result may find as the most clinically significant lesion: colorectal cancer [4.0%], advanced adenoma (including sessile serrated polyps greater than or equal to 1cm diameter) [20%] or non- advanced adenoma [31%]; or no colorectal neoplasia [45%]. These estimates are derived from a prospective cross-sectional screening study of 10,000 individuals at average risk for colorectal cancer who were screened with both Cologuard and colonoscopy. (Alfonso Cloud al, N Engl J Med 2014;370(14):6641-7058.) Cologuard may produce a false negative or false positive result (no colorectal cancer or precancerous polyp present at colonoscopy follow up). A negative Cologuard test result does not guarantee the absence of CRC or advanced adenoma (pre-cancer). The current Cologuard screening interval is every 3 years. ([place] [employer] and U.S. Multi-Society Task Force). Cologuard performance data in a 10,000 patient pivotal study using colonoscopy as the reference method can be accessed at the following location: www.[employer]lyBetter/results. Additional description of the Cologuard test process, warnings and precautions can be found at www.[employer].com. Stool specimen (specimen) 08/30/2024 4:28 PM EDT 09/01/2024 12:47 PM EDT us Mone Bazzi MD LAB MOLECULAR DIAGNOSTICS ORDERA BLES Final Result [facility] (CLIA #:[id number]) [address] [place] [address], * BI Mammogram Screening Tomosynthesis Bilateral (03/24/2024 9:50 AM EST) Anatomical Region Laterality Modality Breast Bilateral Mammography 03/24/2024 9:50 AM EST Narrative 04/01/2024 4:10 PM EST [facility] [address] [place] [address] Mammography Report Signed Patient: Adrienne North MR#: [id number] 94 : 1970 Acct:[id number] Age/Sex: 54 / F ADM Date: 03/24/24 Loc: HO.MAMMO Attending Dr: Mone Bazzi MD Ordering Physician: Mone Bazzi MD Results: 2Benign Findings Date of Service: 03/24/24 Follow Up: 1 Year From Orig ina Mammogram Procedure(s): MM tomosynthesis screening BI Accession Number(s): [id number] cc: Mone Bazzi MD EXAMINATION: MM SCREENING DIGITAL BREAST TOMOSYNTHESIS, BILATERAL CLINICAL INFORMATION: Screening. Asymptomatic. COMPARISON: Mammography: Comparison is made with available priors TECHNIQUE: Digital breast mammography with tomosynthesis is performed in both the craniocaudal and mediolateral oblique views along with computer-aided detection (CAD). FINDINGS: There are scattered areas of fibroglandular density (ACR BI-RADS breast composition Category b). Bilateral reduction mammoplasty. There are no significant masses, abnormal calcifications, or other abnormalities. MM/MM tomosynthesis screening BI IMPRESSION: No mammographic evidence of malignancy. ASSESSMENT: BI-RADS BI-RADS 2 - Benign Findings RECOMMENDATION: Routine annual mammography screening. 1 year F/U This examination should not preclude the clinical evaluation of a suspicious palpable abnormality. This patient's information was entered into a reminder system with a target due date for their next mammogram. Electronically signed by: Magdalena Mishra DO 04/01/2024 04:07 PM EST Dictated By: Magdalena Mishra DO Signed By: <Electronically signed by Magdalena Mishra DO in OV> 04/01/24 1607 DD/ 0950 TD/TT: 03/24/24 1005 Fulfillment Coordinator: Procedure Note Donotuseinterpreter, Image - 04/01/2024 [facility] [address] [place] [address] Mammography Report Signed Patient: Chiquis North#: [id number] [birth year] : 1970Acct:[id number] Age/Sex: 54 / FADM Date: 03/24/24 Loc: HO.MAMMO Attending Dr: Mone Bazzi MD Ordering Physician: Mone Bazzi MDResults: 2Benign Findings Date of Service: 03/24/24Follow Up: 1 Year From Orig inal Mammogram Procedure(s): MM tomosynthesis screening BI Accession Number(s): [id number] cc: Mone Bazzi MD EXAMINATION: MM SCREENING DIGITAL BREAST TOMOSYNTHESIS, BILATERAL CLINICAL INFORMATION: Screening. Asymptomatic. COMPARISON: Mammography: Comparison is made with available priors TECHNIQUE: Digital breast mammography with tomosynthesis is performed in both the craniocaudal and mediolateral oblique views along with computer-aided detection (CAD). FINDINGS: There are scattered areas of fibroglandular density (ACR BI-RADS breast composition Category b). Bilateral reduction mammoplasty. There are no significant masses, abnormal calcifications, or other abnormalities. MM/MM tomosynthesis screening BI IMPRESSION: No mammographic evidence of malignancy. ASSESSMENT: BI-RADS BI-RADS 2 - Benign Findings RECOMMENDATION: Routine annual mammography screening. 1 year F/U This examination should not preclude the clinical evaluation of a suspicious palpable abnormality. This patient's information was entered into a reminder system with a target due date for their next mammogram. Electronically signed by: Magdalena Mishra DO 04/01/2024 04:07 PM [facility] Dictated By: Magdalena Mishra DO Signed By: <Electronically signed by Magdalena Mishra DO in OV> 04/01/24 1607 DD/ 0950 TD/TT: 03/24/24 1005 Fulfillment Coordinator: us Mone Bazzi MD IMG BI PROCEDURES Final Result * Lipid Panel, Standard (10/26/2023 8:59 AM EDT) Triglycerides 60 <150 mg/dL [facility] Comment:Desirable Triglyceri de: less than 150 mg/dLBorderline High Triglyceride 150-199 mg/dLHigh Triglyceride: 200-499 mg/dLVery High Triglyceride: greater than or equal to 5OO mg/dL Cholesterol 171 <200 mg/dL [facility] Comment:Desirable Cholestero l: less than 200 mg/dLBorderline High Cholesterol: 200-239 mg/dLHigh Cholesterol: greater than 239 mg/dL LDL Cholesterol Calculated 98 <100 mg/dL [facility] Comment:Desirable LDL: less than 100 mg/dLNear Optimal/Above Optimal LDL: 110- 129 mg/dLBorderline High LDL: 130-159 mg/dLHigh LDL: 160-189 mg/dLVery High LDL: greater than or equal to 190 mg/dL HDL Cholesterol 61 >40 mg/dL [facility] Comment:Desirable HDL: great er than 40 mg/dL Note: This HDL assay may give artificially low results in patients with liver disease. Blood Venous blood specimen / Unknown 10/26/2023 8:59 AM EDT 10/26/2023 2:20 PM EDT Mone Bazzi MD LAB BLOOD ORDERABLES Final Resul t [facility] [address] [place], [place] [id number] [phone] * HPV mRNA E6/E7 w/Reflex to HPV Genotypes 16, 18/45 (12/23/2022 2:26 PM EDT) HPV nRNA E6/E7 Not Detected Not Detected [facility] Comment:Methodology: Transcr iption-Mediated AmplificationThis assay detects E6/E7 viral messenger RNA (mRNA) from 14high-risk HPV types (16,18,31,33,35,39,45,51,52,56,58,59,66,68).Cervical sources are required for HPV testing.If a vaginal source from a patient who has had atotal hysterectomy with removal of cervix wassubmitted, please contact the testing laboratoryfor alternative testing options.For additional information, please refer tohttp://education.[employer]/faq/HRY573v0(This link if provided for information/educational purposes only.)THIS TEST WAS PERFORMED AT:[facility] [place] [id number] ULZ MD HPV mRNA E6/E7 TNP [facility] HPV 16 RNA TNP [facility] HPV 18/45 RNA [facility] 12/23/2022 2:26 PM EDT 12/25/2022 9:00 AM EDT Blayne Antony CNM LAB CYTOLOGY ORDERABLES F inal Result [facility] [address] [place] [address] [phone] * Pap Smear (12/23/2022 2:26 PM EDT) 12/23/2022 2:26 PM EDT 12/25/2022 9:00 AM EDT Mack [facility] - 01/10/2023 4:18 PM EDT ----- ------- Name: Adrienne North Age/Sex: 52/F : 1970 Unit#: [id number] Attend Dr: BLAYNE ANTONY CNM Re12/23/22 Status: DEP REF Location: [facility] Disch: ----- ------- SPEC : [id number] RECD: 12/25/22 STATUS: KANA BURKETT NUM: [id number] CHRISTIANO: 12/23/22 [facility] DR: [facility]: 12/25/222404 SP TYPE: Pap Smr OTHR DR: ORDERED: Pap Smear Interpretation Satisfactory for evaluation. No endocervical cells seen. Negative for intraepithelial lesion or malignancy. Coccobacilli consistent with shift in vaginal jeff. HPV mRNA E6/E7: NOT DETECTED This assay detects E6/E7 viral messenger RNA (mRNA) from 14 high-risk HPV types (16, 18, 31, 33, 35, 39, 45, 51, 52, 56, 58, 59, 66, 68) HPV testing performed by [facility], [place], [place]. See reference laboratory portion of the EMR for entire report. Clinical Information LMP:Unknown date Previous PAP test:Unknown date/findings Other history: 5Y NIL Material Received ThinPrep-Cervical ----- ------- Signed (signature on file) Layla Mathur 01/10/23 1618 ----- ------- END OF REPORT Blayne HERNANDEZ LAB CYTOLOGY ORDERABLES F inal Result [facility] [address] [place] [address] [phone] * HIV-1 RNA, Quantitative, Real-Time PCR with Reflex to Genotype (RTI, PI, Integrase) (11/13/2022 10:45 AM EDT) HIV 1 RNA, QN PCR NOT DETECTED copies/mL [facility], HIV 1 RNA, QN PCR NOT DETECTED Log copies/mL [facility], Comment: REFERENCE RANGE: NOT DETECTED copies/mL NOT DETECTED Log copies/mL This test was performed using Real-Time Polymerase Chain Reaction. Reportable range is 20 to 10,000,000 copies/mL (1.30-7.00 Log copies/mL). 11/13/2022 10:4 5 AM EDT 11/13/2022 10:46 AM EDT Mone Bazzi MD LAB BLOOD ORDERABLES Final Resul t Performing Organization Address City/[facility] Co de Phone Number [facility] [address], [place] [address] [facility], [address] [place] [address] * Hepatitis C Antibody with Reflex to HCV, RNA, Quantitative, Real-Time PCR (11/13/2022 10:45 AM EDT) Hepatitis C Antibody NON-REACT JARRETT NON-REACT JARRETT [facility] Comment: HCV antibody was non-reactive. There is no laboratory evidence of HCV infection. In most cases, no further action is required. However, if recent HCV exposure is suspected, a test for HCV RNA (test code 17151) is suggested. For additional information please refer to http://education.[employer]/faq/VTN14a4 (This link is being provided for informational/ educational purposes only.) Blood Venous blood specimen / Unknown 11/13/2022 10:45 AM EDT 11/13/2022 10:46 AM EDT us Mone Bazzi MD LAB BLOOD ORDERABLES Final Resul t [facility] [address], [place] [address] [facility] [address] [place] [address] from Last 3 Months or Most Recently Relevant to Health Maintenance Insurance PPO Care Teams Research Study Assistant Relationship Specialty Start Date End Date Mone Bazzi MD [address] [place] [address] PCP - General Family Medicine 05/25/13
[2025-02-06 14:37] LABS: Alanine Aminotransferase 61 U/L (0-31); Albumin Level 4.6 g/dL (3.5-5.0); Alkaline Phosphatase 79 U/L (39-117); Anion Gap 13 (12-20); Aspartate Amino Transferase 36 U/L (5-31); Blood Urea Nitrogen 15 mg/dL (9-16); Calcium 10.6 mg/dL (8.4-10.2); Carbon Dioxide 28 mmol/L (22-29); Chloride 100 mmol/L (96-108); Cholesterol 199 mg/dL (<200); Estimated Glomerular Filt Rate > 60; HDL Cholesterol 61 mg/dL (>40); Potassium 3.1 mmol/L (3.3-5.1); Sodium 138 mmol/L (135-145); Total Protein 7.8 g/dL (6.5-8.0); Triglycerides 103 mg/dL (<150)
== END 2025-02-06 09:23 | disposition home or self-care (01) ==
LOC: HO.CHCLDS 09:22
PROVIDERS: Visit Provider Student in an Organized Health Care Education/Training Program
DX: I10 Essential (primary) hypertension (principal)
CPT/HCPCS: 36415; 80048; 80061; 80076